=== PATIENT | female | born 1945 | race Caucasian/White ===

== ENCOUNTER 2021-05-28 13:34 | Inpatient (IN) ==
[2021-05-28 14:45] LABS: Albumin 3.8 g/dL (3.2-5.2); Albumin/Globulin Ratio 1.5 (1-3); Calcium 9.9 mg/dL (8.6-10.3); Globulin 2.5 g/dL (2-4); Potassium 4.4 mmol/L (3.5-5.0); Total Bilirubin 0.3 mg/dL (0.2-1.0); Total Protein 6.3 g/dL (6.4-8.9); eGFR CKD-EPI 80.4 (>60)
[2021-05-28 15:24] LABS: ABS Basophils 0.1 10^3/ul (0-0.2); ABS Eosinophils 0.7 10^3/ul (0-0.6); ABS Lymphocytes 2.4 10^3/ul (1.0-4.8); ABS Monocytes 0.9 10^3/ul (0-0.8); ABS Neutrophils 7.7 10^3/ul (1.5-7.7); Eosinophil % 6.1 %; Hematocrit 42 % (35-47); Hemoglobin 14.1 g/dL (12.0-16.0); Lymphocyte % 20.5 %; Mean Corpuscular HGB Conc 33 g/dL (31-36); Mean Corpuscular Hemoglobin 32 pg (27-31); Mean Corpuscular Volume 97 fL (80-97); Mean Platelet Volume 7.4 fL (7.4-10.4); Nucleated Red Blood Cells % 0.1; Platelet Count 357 10^3/uL (150-450); Red Blood Count 4.36 10^6 /uL (3.70-4.87); Red Cell Distribution Width 13 % (10-15); White Blood Count 11.8 10^3/uL (3.5-10.8)
[2021-05-28 15:37] LABS: INR 1.19 (0.86-1.15)
[2021-05-28 15:48] LABS: High Sensitivity Troponin 1 Hr 8 pg/mL (<15)
[2021-05-28] MEDS ORDERED: Iohexol 350 (CONTRAST) 500 ML MDV IV ONE (17:29)
[2021-05-28] MEDS ORDERED: Fluticasone NASAL SPRAY 50MCG 16 gm SPRAY BTL BOTH NARES PRN (20:34)
[2021-05-28] MEDS ORDERED: Azithromycin 500 mg/250 ml NS 500 MG/250 ML BAG IVPB SCH (21:00)
[2021-05-28 21:19] LABS: C Reactive Protein 11.82 mg/L (<8.01)
[2021-05-28] MEDS: Cholecalciferol (VIT D3) 1,000 unit TAB PO SCH (23:41)
[2021-05-28] MEDS: cefTRIAXone 1 gm/50 mL NS BAG 1 GM/50 ML BAG IVPB SCH (23:41)
[2021-05-29 05:40] LABS: ABS Basophils 0.1 10^3/ul (0-0.2); ABS Eosinophils 0.7 10^3/ul (0-0.6); ABS Lymphocytes 2.7 10^3/ul (1.0-4.8); ABS Monocytes 0.8 10^3/ul (0-0.8); ABS Neutrophils 6.2 10^3/ul (1.5-7.7); Eosinophil % 6.8 %; Hematocrit 40 % (35-47); Hemoglobin 13.5 g/dL (12.0-16.0); Lymphocyte % 25.5 %; Mean Corpuscular HGB Conc 34 g/dL (31-36); Mean Corpuscular Hemoglobin 33 pg (27-31); Mean Corpuscular Volume 96 fL (80-97); Mean Platelet Volume 7.3 fL (7.4-10.4); Platelet Count 317 10^3/uL (150-450); Red Blood Count 4.15 10^6 /uL (3.70-4.87); Red Cell Distribution Width 13 % (10-15); White Blood Count 10.5 10^3/uL (3.5-10.8)
[2021-05-29 05:49] LABS: INR 1.2 (0.86-1.15)
[2021-05-29 06:34] LABS: Albumin 3.3 g/dL (3.2-5.2); Albumin/Globulin Ratio 1.6 (1-3); Globulin 2.1 g/dL (2-4); HDL Cholesterol 31.2 mg/dL; Magnesium 1.7 mg/dL (1.9-2.7); Potassium 3.6 mmol/L (3.5-5.0); Total Bilirubin 0.3 mg/dL (0.2-1.0); Total Protein 5.4 g/dL (6.4-8.9); eGFR CKD-EPI 75.7 (>60)
[2021-05-29 06:37] LABS: TSH Ultra Thyroid Stim Horm 6.5 mcIU/mL (0.34-5.60)
[2021-05-29] MEDS ORDERED: Magnesium Sulfate IV 3 GM in NS 0.9% 100 ml BAG 100 ML IVPB ONE (06:39)
[2021-05-29] MEDS ORDERED: Magnesium Sulfate 2 GM IV (Premix) IVPB ONE (07:30)
[2021-05-29] MEDS ORDERED: Magnesium Sulfate 1 GM IV 1 GM/100 ML BAG IV ONE (09:00)
[2021-05-29] MEDS: Aspirin EC 81 mg TAB.EC (enteric coated) PO SCH (10:23)
[2021-05-29] MEDS: Potassium Chlor 20 meq TAB.ER PO SCH (10:23)
[2021-05-29 19:44] LABS: Body Fluid Appearance Cloudy; Body Fluid Color Yellow; Body Fluid Source Pleural Fluid
[2021-05-29] MEDS: Cholecalciferol (VIT D3) 1,000 unit TAB PO SCH (20:33)
[2021-05-29 20:46] LABS: Body Fluid Mono 6 %; Body Fluid Total Cells Counted 200
[2021-05-29] MEDS ORDERED: Enoxaparin 40 MG/0.4 ML SYR SUBCUT SCH (21:00)
[2021-05-29 21:14] LABS: Body Fluid WBC 911 /mcL
[2021-05-29] MEDS: cefTRIAXone 1 gm/50 mL NS BAG 1 GM/50 ML BAG IVPB SCH (22:41)
[2021-05-30 05:41] LABS: ABS Basophils 0.1 10^3/ul (0-0.2); ABS Eosinophils 0.7 10^3/ul (0-0.6); ABS Lymphocytes 2.5 10^3/ul (1.0-4.8); ABS Monocytes 0.8 10^3/ul (0-0.8); ABS Neutrophils 7.5 10^3/ul (1.5-7.7); Eosinophil % 6.3 %; Hematocrit 42 % (35-47); Lymphocyte % 21.8 %; Mean Corpuscular HGB Conc 34 g/dL (31-36); Mean Corpuscular Hemoglobin 33 pg (27-31); Mean Corpuscular Volume 97 fL (80-97); Mean Platelet Volume 7.6 fL (7.4-10.4); Platelet Count 288 10^3/uL (150-450); Red Blood Count 4.29 10^6 /uL (3.70-4.87); Red Cell Distribution Width 13 % (10-15); White Blood Count 11.6 10^3/uL (3.5-10.8)
[2021-05-30 06:12] LABS: Calcium 8.8 mg/dL (8.6-10.3); Magnesium 1.9 mg/dL (1.9-2.7); Potassium 3.9 mmol/L (3.5-5.0)
[2021-05-30] MEDS: Aspirin EC 81 mg TAB.EC (enteric coated) PO SCH (09:06)
[2021-05-30] MEDS: Potassium Chlor 20 meq TAB.ER PO SCH (09:07)
[2021-05-30 11:48] VITALS: BP 131/59
[2021-05-31 13:41] LABS: Lactate Dehydrogenase, BF 306 U/L
[2021-06-01 09:42] LABS: Fluid Type: PLEURAL
[2021-06-01 09:44] LABS: Fluid Type: PLEURAL; Triglycerides (BF) 46 mg/dL
[2021-06-01 09:46] LABS: Fluid Type, Protein, Total PLEURAL; Total Protein, BF 4.2 g/dL
[2021-06-01 10:29] LABS: Fluid Type, Amylase PLEURAL
[2021-06-01 11:29] LABS: Glucose, BF 163 mg/dL
[2021-06-02 10:01] LABS: Albumin, BF 2.8 g/dL; Fluid Type, Albumin PLEURAL
== END 2021-05-30 15:20 | disposition home or self-care (01) | DRG 186 ==
LOC: ED 13:34 → SUATTDRO 19:44 → EDHOLD 19:44 → MEDTELE 22:20
PROVIDERS: ADMIT Hospitalist; ATTEND Internal Medicine